=== PATIENT | female | born 1985 ===

== ENCOUNTER 2021-07-15 01:22 | Emergency (ER) | payer MEDICAID ==
--- NOTE | 2021-07-15 03:30 | Emergency Department Report ---
ED Psych HPI - General Chief Complaint: Headache Stated Complaint: HEADACHE Time Seen by Provider: 07/15/21 03:26 Source: patient Mode of arrival: Ambulatory Limitations: No Limitations - History of Present Illness Initial Comments: Patient is a 35-year-old female who presents emergency room with complaints of headache and hallucinations. Patient states that hallucinations for many years. Patient states that hallucinations are becoming more frequent. Patient states she cannot stop the voices from talking to her. Patient states she is really not having headache she just wants to get help for her mental health issues. Patient states that she has so many racing thoughts and hallucinations that is causing her head hurt. Patient denies pain. Patient denies chest pain or shortness of breath. Patient denies recent travel. Patient denies recent international travel. Patient denies exposure to the novel coronavirus. Patient denies sick contacts. Patient denies fever and chills. Patient denies cough. Patient denies diarrhea. Patient denies coming in contact with anybody with symptoms of the novel coronavirus. MD Complaint: other -: Sudden Associated Psychiatric Symptoms: depression, racing thoughts, auditory hallucinations, visual hallucinations History of same: Yes Quality: constant Improves With: none Worsens With: none Associated Symptoms: denies: confusion, headache, shortness of breath, nausea, vomiting, syncope, insomnia - Related Data Previous Rx's Medication Instructions Recorded Last Taken Type Divalproex Dr [DepaKOTE DR] 125 mg PO BID #30 tablet 07/18/21 Unknown Rx FLUoxetine [PROzac] 10 mg PO QDAY #30 tablet 07/18/21 Unknown Rx OLANZapine [Zyprexa] 20 mg PO DAILY #30 tablet 07/18/21 Unknown Rx Allergies Allergy/AdvReac Type Severity Reaction Status Date / Time No Known Allergies Allergy Verified 07/21/21 15:21 ED Review of Systems ROS: Stated complaint: HEADACHE Other details as noted in HPI Constitutional: denies: chills, fever Eyes: denies: eye pain, eye discharge, vision change ENT: denies: ear pain, throat pain Respiratory: denies: cough, shortness of breath, wheezing Cardiovascular: denies: chest pain, palpitations Endocrine: no symptoms reported Gastrointestinal: denies: abdominal pain, nausea, diarrhea Genitourinary: denies: urgency, dysuria, discharge Musculoskeletal: denies: back pain, joint swelling, arthralgia Skin: denies: rash, lesions Neurological: denies: weakness, paresthesias Psychiatric: depression, auditory hallucinations, visual hallucinations. denies: anxiety, homicidal thoughts, suicidal thoughts Hematological/Lymphatic: denies: easy bleeding, easy bruising ED Past Medical Hx - Past Medical History Previous Medical History?: No - Surgical History Past Surgical History?: No - Family History Family history: no significant - Social History Smoking Status: Unknown if ever smoked Substance Use Type: Marijuana - Medications Home Medications: Home Medications Medication Instructions Recorded Confirmed Last Taken Type Divalproex Dr [DepaKOTE DR] 125 mg PO BID #30 tablet 07/18/21 Unknown Rx FLUoxetine [PROzac] 10 mg PO QDAY #30 tablet 07/18/21 Unknown Rx OLANZapine [Zyprexa] 20 mg PO DAILY #30 tablet 07/18/21 Unknown Rx ED Physical Exam - General Limitations: No Limitations General appearance: alert, in no apparent distress - Head Head exam: Present: atraumatic, normocephalic - Eye Eye exam: Present: normal appearance - ENT ENT exam: Present: mucous membranes moist - Neck Neck exam: Present: normal inspection - Respiratory Respiratory exam: Present: normal lung sounds bilaterally. Absent: respiratory distress - Cardiovascular Cardiovascular Exam: Present: regular rate, normal rhythm. Absent: systolic murmur, diastolic murmur, rubs, gallop - GI/Abdominal GI/Abdominal exam: Present: soft, normal bowel sounds - Extremities Exam Extremities exam: Present: normal inspection - Back Exam Back exam: Present: normal inspection - Neurological Exam Neurological exam: Present: alert, oriented X3 - Psychiatric Psychiatric exam: Present: depressed, flat affect - Expanded Psychiatric Exam Expanded Focused psych exam: Present: pressured speech, loose associations - Skin Skin exam: Present: warm, dry, intact, normal color. Absent: rash ED Course Vital Signs 07/15/21 07/15/21 07/15/21 02:36 15:38 18:14 Temperature 98.0 F 97.7 F Pulse Rate 89 70 Respiratory 18 18 Rate Blood Pressure 118/76 Blood Pressure 123/71 [Left] O2 Sat by Pulse 99 97 97 Oximetry 07/15/21 07/15/21 07/15/21 20:07 20:19 21:22 Temperature 98.4 F Pulse Rate 54 L 57 L Respiratory 16 16 16 Rate Blood Pressure Blood Pressure 78/33 100/46 [Left] O2 Sat by Pulse 98 98 98 Oximetry 07/16/21 07/16/21 07/16/21 02:07 07:30 07:38 Temperature 98.4 F 98.7 F Pulse Rate 53 L 58 L Respiratory 16 16 16 Rate Blood Pressure Blood Pressure 95/62 96/62 [Left] O2 Sat by Pulse 98 100 98 Oximetry 07/16/21 07/16/21 07/16/21 13:35 16:30 19:45 Temperature 98.9 F Pulse Rate 60 62 57 L Respiratory 16 16 16 Rate Blood Pressure Blood Pressure 102/62 98/54 90/37 [Left] O2 Sat by Pulse 100 100 96 Oximetry 07/16/21 07/17/21 07/17/21 22:47 02:20 11:44 Temperature 98.3 F Pulse Rate 64 77 Respiratory 16 16 18 Rate Blood Pressure Blood Pressure 114/69 110/66 [Left] O2 Sat by Pulse 98 97 97 Oximetry 07/17/21 07/17/21 07/18/21 16:25 19:55 08:56 Temperature 98.4 F 97.6 F Pulse Rate 91 H 61 Respiratory 18 18 Rate Blood Pressure Blood Pressure 96/53 123/64 [Left] O2 Sat by Pulse 99 100 100 Oximetry - Reevaluation(s) Reevaluation #1: Patient placed on a ER hold. 07/15/21 03:29 Reevaluation #2: Patient is medically cleared. Patient will remain in the ER as an ER hold until cleared by mental health. Patient's final disposition will come from our psychiatry team. 07/15/21 05:11 ED Medical Decision Making - Lab Data Result diagrams: 07/17/21 10:24 07/15/21 18:53 - Medical Decision Making Patient is a 35-year-old female that presents emergency room with complaints of hallucinations and headache. Patient states that she does not have a headache just needs something done about her mental state. Patient states she is hearing voices. Patient has signs and symptoms of psychosis. Patient placed on a ER hold after initial evaluation. Patient had labs done which were essentially unremarkable. Patient is medically cleared. Patient's final disposition will come from our psychiatry mental health team. - Differential Diagnosis Hallucinations, acute psychosis, Critical care attestation.: If time is entered above; I have spent that time in minutes in the direct care of this critically ill patient, excluding procedure time. ED Disposition Clinical Impression: Acute psychosis, Hallucinations, visual, Auditory hallucinations Disposition: HOME / SELF CARE / HOMELESS Is pt being admited?: No Does the pt Need Aspirin: No Condition: Stable Instructions: Psychosis Additional Instructions: Take medications as written by [facility] health. Drink plenty water. Return for problems. Follow-up with your regular doctor. Prescriptions: Divalproex Dr [DepaKOTE DR] 125 mg PO BID #30 tablet FLUoxetine [PROzac] 10 mg PO QDAY #30 tablet OLANZapine [Zyprexa] 20 mg PO DAILY #30 tablet Referrals: PRIMARY CAREMD [Primary Care Provider] - 3-5 Days NISREEN JETT MD [Staff Physician] - 3-5 Days Time of Disposition: 05:11
[2021-07-15 03:54] LABS: Hematocrit 41.1 % (30.3-42.9); Hemoglobin 13.9 gm/dl (10.1-14.3); Mean Corpuscular HGB Conc 34 % (30-34); Mean Corpuscular Volume 96 fl (79-97); Platelet Count 252 K/mm3 (140-440); Red Blood Count 4.29 M/mm3 (3.65-5.03); Red Cell Distribution Width 14.3 % (13.2-15.2)
[2021-07-15 04:36] LABS: Blood Urea Nitrogen 9 mg/dL (7-17); Calcium 9.4 mg/dL (8.4-10.2); Hemolysis Index 2
[2021-07-15 04:40] LABS: Total Cells Counted 100
[2021-07-15 04:41] LABS: Platelet Estimate Consistent w Auto; RBC Morphology Normal
[2021-07-15 04:54] LABS: BUN/Creatinine Ratio 15
[2021-07-15 10:24] LABS: Amphetamine Screen,Urine Negative; Benzodiazepines Screen,Urine Negative; Cocaine Screen,Urine Negative; Methadone Screen,Urine Negative; Opiate Screen,Urine Negative
[2021-07-15] MEDS ORDERED: POTASSIUM CHLORIDE ER 20 MEQ TAB PO ONE (10:29)
[2021-07-15 10:30] LABS: Bilirubin,Urine NEG (Negative); Blood,Urine SM (Negative); Color,Urine Yellow (Yellow); Mucus,Urine 3+ /HPF; Protein,Urine <15 mg/dL mg/dL (Negative)
[2021-07-15] MEDS ORDERED: SODIUM CHLORIDE 0.9% 1000 ML 1,000 ML IV ONE (10:32)
--- NOTE | 2021-07-15 10:37 | Event Note ---
Date: 07/15/21 S: No events reported overnight O: Vital Signs - 24 hr 07/15/21 02:36 Temperature 98.0 F Pulse Rate 89 Respiratory 18 Rate Blood Pressure 118/76 O2 Sat by Pulse 99 Oximetry A: Psychosis, hypokalemia P: Awaiting psychiatric evaluation. Potassium chloride 40 mEq p.o. ordered
--- NOTE | 2021-07-15 10:57 | Consultation ---
History of Present Illness - Reason for Consult Consult date: 07/15/21 Reason for consult: hallucinations - History of Present Psychiatric Illness Per Ed Note: Patient is a 35-year-old female who presents emergency room with complaints of headache and hallucinations. Patient states that hallucinations for many years. Patient states that hallucinations are becoming more frequent. Patient states she cannot stop the voices from talking to her. Patient states she is really not having headache she just wants to get help for her mental health issues. Divina Pham is a 35 year old female with unknown psychiatric history who presents to the ED with hallucinations and headache. In my interview with the patient she presents with labile affect. The patient endorses non commanding auditory hallucinations stating " I hear voices coming from the [place] and I don't understand what they are saying." The patient denies any current suicidal/homicidal ideation. The patient became hostile in the middle of our conversation and stated she did not want to continue the interview. Psych History Diagnoses: Denies Suicide attempts or Self-harm behavior:Denies Prior psychiatric hospitalizations: Denies Substance Abuse history:Denies Previous psychiatric medications tried:Denies Outpatient treatment: Denies PAST MEDICAL HISTORY: none reported Family Psychiatric History: None reported or documented SOCIAL HISTORY Marital Status: Living Arrangements: Lives alone Employment Status:unemployed Access to guns/weapons: Denies Education: 8th Grade History of Abuse: Denies Legal History: none reported REVIEW OF SYSTEMS Constitutional: Negative for weight loss ENT: Negative for stridor Respiratory: Negative for cough or hemoptysis All other systems reviewed and are negative MENTAL STATUS EXAMINATION General Appearance and Behavior: Age appropriate, good hygiene, wearing appropriate clothes, sleeping, cooperative Cooperation: Participating but drowsy Psychomotor Behavior: unremarkable and within normal limits Mood: "OK" Affect and affective range: Incongruent with mood, labile Thought Process:Thought blocking Thought Content: Impulsive Speech: Normal volume, Regular rate and rhythm, Suicidal Ideation: Denies Homicidal Ideation:Denies Hallucinations: Yes, auditory Delusions: None elicited Impulse Control: Questionable Insight and Judgment: Limited insight and poor judgment, Memory: Normal, Attention: Normal Orientation: Alert, oriented Assessment and Plan (1)Unspecified mood disorder- F39 Continue 1013 Start Zyprexa 10mg po dailt Start Trazodone 50mg po QHS Continue previously prescribed medications The patient to comply with previously prescribed medications Risks, benefits and alternatives of medications discussed with the patient, questions answered and consent obtained from patient. PSYCHOTHERAPY: Supportive psychotherapy provided MEDICAL: Per primary team DELIRIUM PRECAUTIONS: Please re-orient patient frequently, keep lights on during the day, and minimize benzodiazepines and opiates as these medications could worsen patient's confusion. 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 [facility] will provide patient with out patient resources. Will follow. Thank you for the consult. Please contact with any questions and/or concerns. Case staffed with Dr. Norris Medications and Allergies Allergies Allergy/AdvReac Type Severity Reaction Status Date / Time No Known Allergies Allergy Unverified 07/15/21 02:42 Active Meds: Active Medications Sodium Chloride (Nacl 0.9% 1000 Ml) 1,000 mls @ 999 mls/hr IV ONCE ONE Stop: 07/15/21 11:32 Olanzapine (Olanzapine 10 Mg Tab) 10 mg PO DAILY ROSALVA Ziprasidone (Ziprasidone Mesylate 20 Mg Vial) 10 mg IM Q2H PRN PRN Reason: Agitation Mental Status Exam - Vital signs Last Vital Signs Temp 98.0 F 07/15/21 02:36 Pulse 89 07/15/21 02:36 Resp 18 07/15/21 02:36 BP 118/76 07/15/21 02:36 Pulse Ox 99 07/15/21 02:36 Results Result Diagrams: 07/15/21 03:36 07/15/21 03:36 Abnormal lab results 07/15/21 07/15/21 07/15/21 Range/Units 03:36 03:36 03:36 WBC 13.0 H (4.5-11.0) K/mm3 MCH 33 H (28-32) pg Lymphocytes % (Manual) 49.0 H (13.4-35.0) % Lymphocytes # (Manual) 6.4 H (1.2-5.4) K/mm3 Potassium 3.0 L (3.6-5.0) mmol/L Glucose 141 H (65-100) mg/dL Salicylates < 0.3 L (2.8-20.0) mg/dL Acetaminophen (10.0-30.0) ug/mL 07/15/21 Range/Units 03:36 WBC (4.5-11.0) K/mm3 MCH (28-32) pg Lymphocytes % (Manual) (13.4-35.0) % Lymphocytes # (Manual) (1.2-5.4) K/mm3 Potassium (3.6-5.0) mmol/L Glucose (65-100) mg/dL Salicylates (2.8-20.0) mg/dL Acetaminophen 5.0 L (10.0-30.0) ug/mL All other labs normal.
[2021-07-15 12:13] LABS: Cannabinoid Screen,Urine PRESUMPTIVE POSITIVE
[2021-07-15 19:05] LABS: Hematocrit 36.9 % (30.3-42.9); Hemoglobin 12.6 gm/dl (10.1-14.3); Mean Corpuscular HGB Conc 34 % (30-34); Mean Corpuscular Volume 95 fl (79-97); Platelet Count 237 K/mm3 (140-440); Red Blood Count 3.89 M/mm3 (3.65-5.03); Red Cell Distribution Width 14.3 % (13.2-15.2)
[2021-07-15 19:22] LABS: BUN/Creatinine Ratio 15; Blood Urea Nitrogen 12 mg/dL (7-17); Hemolysis Index 3
--- NOTE | 2021-07-16 08:58 | Progress Note ---
Subjective - Reason for Consult Consult date: 07/16/21 Reason for consult: psychosis - Chief Complaint Chief complaint: The patient was seen today. She is paranoid. She is avoidant. Her speech is nonsensical. The patient makes poor eye contact. She says she came to the hospital because she had a headache for three years. She also says she's "hearing voices telling her stuff." She denies SI/HI. She then tells me to "take my words back." The patient says "don't mention any of it." I ask her what did she mean, she replies "that's exactly what I'm talking about. Please turn my light off." She is mumbling something as I'm leaving. REVIEW OF SYSTEMS Constitutional: Negative for weight loss ENT: Negative for stridor Respiratory: Negative for cough or hemoptysis All other systems reviewed and are negative MENTAL STATUS EXAMINATION General Appearance and Behavior: Age appropriate, good hygiene, wearing appropriate clothes, sleeping, cooperative Cooperation: Participating but drowsy Psychomotor Behavior: unremarkable and within normal limits Mood: "OK" Affect and affective range: Incongruent with mood, labile Thought Process: Thought blocking Thought Content: Impulsive Speech: Normal volume, Regular rate and rhythm, Suicidal Ideation: Denies Homicidal Ideation:Denies Hallucinations: Yes, auditory Delusions: None elicited Impulse Control: Questionable Insight and Judgment: Limited insight and poor judgment, Memory: Normal, Attention: Normal Orientation: Alert, oriented Assessment (1)Unspecified mood disorder- F39 Treatment Plan Increase Zyprexa 15mg po daily Start Depakote DR 125mg po BID Continue previously prescribed medications The patient to comply with previously prescribed medications Risks, benefits and alternatives of medications discussed with the patient, questions answered and consent obtained from patient. PSYCHOTHERAPY: Supportive psychotherapy provided MEDICAL: Per primary team DELIRIUM PRECAUTIONS: Please re-orient patient frequently, keep lights on during the day, and minimize benzodiazepines and opiates as these medications could worsen patient's confusion. DIANETICIST: Defer to primary Disposition: Recommend acute psychiatric inpatient treatment. Supervisor Production Managing will provide patient with out patient resources. Will follow. Thank you for the consult. Please contact with any questions and/or concerns. Case staffed with Dr. Norris Mental Status Exam - Vital signs Last Vital Signs Temp 98.4 F 07/16/21 02:07 Pulse 53 L 07/16/21 02:07 Resp 16 07/16/21 02:07 BP 95/62 07/16/21 02:07 Pulse Ox 98 07/16/21 02:07
[2021-07-16] MEDS: DIVALPROEX DR 125 MG TAB PO SCH ×2 (10:32→22:38)
--- NOTE | 2021-07-16 11:13 | Event Note ---
Date: 07/16/21 S: No events reported overnight O: Vital Signs - 8 hr 07/16/21 07:30 Temperature 98.7 F Pulse Rate 58 L Respiratory 16 Rate Blood Pressure 96/62 [Left] O2 Sat by Pulse 100 Oximetry A: Unspecified mood disorder, UTI P: Awaiting inpatient psych placement, start Bactrim for UTI, IV hydration
[2021-07-16] MEDS ORDERED: SODIUM CHLORIDE 0.9% 1000 ML 1,000 ML IV ONE (11:48)
[2021-07-16] MEDS: SULFAMETHOXAZOLE/TRIMETHOPRIM 800/160MG DS TAB PO SCH ×2 (13:31→23:22)
[2021-07-16] MEDS ORDERED: LORazepam 1 MG TAB PO ONE (14:10)
[2021-07-16] MEDS ORDERED: WATER FOR INJ Sterile (PF) 10 ML ONE (14:26)
[2021-07-16] MEDS: ZIPRASIDONE MESYLATE 20 MG VIAL IM PRN (15:00)
[2021-07-16] MEDS ORDERED: CYCLOBENZAPRINE 10 MG TAB PO ONE (16:58)
[2021-07-17] MEDS: SULFAMETHOXAZOLE/TRIMETHOPRIM 800/160MG DS TAB PO SCH (09:42)
[2021-07-17] MEDS: DIVALPROEX DR 125 MG TAB PO SCH (09:42)
--- NOTE | 2021-07-17 10:16 | Progress Note ---
Subjective - Reason for Consult Consult date: 07/17/21 Reason for consult: psychosis - Chief Complaint Chief complaint: The patient was seen today. Her thoughts are still somewhat disorganized, but she's much more conversational today. The patient says she doesn't feel safe going home. When asking why did she feel unsafe, she says "that's true." She then asks, "can doctors take care of me?" When asked the patient why did she come to the hospital, she states "because I had a headache for three years and hearing voices." REVIEW OF SYSTEMS Constitutional: Negative for weight loss ENT: Negative for stridor Respiratory: Negative for cough or hemoptysis All other systems reviewed and are negative MENTAL STATUS EXAMINATION General Appearance and Behavior: Age appropriate, good hygiene, wearing appro priate clothes, sleeping, cooperative Cooperation: Participating but drowsy Psychomotor Behavior: unremarkable and within normal limits Mood: "OK" Affect and affective range: Incongruent with mood, labile Thought Process: Thought blocking Thought Content: Impulsive Speech: Normal volume, Regular rate and rhythm, Suicidal Ideation: Denies Homicidal Ideation:Denies Hallucinations: Yes, auditory Delusions: None elicited Impulse Control: Questionable Insight and Judgment: Limited insight and poor judgment, Memory: Normal, Attention: Normal Orientation: Alert, oriented Assessment (1)Unspecified mood disorder- F39 Treatment Plan Increase Zyprexa 20mg po daily Depakote DR 125mg po BID Start Prozac 10mg po daily Continue previously prescribed medications The patient to comply with previously prescribed medications Risks, benefits and alternatives of medications discussed with the patient, questions answered and consent obtained from patient. PSYCHOTHERAPY: Supportive psychotherapy provided MEDICAL: Per primary team DELIRIUM PRECAUTIONS: Please re-orient patient frequently, keep lights on during the day, and minimize benzodiazepines and opiates as these medications could worsen patient's confusion. REFUGE MANAGER: Defer to primary Disposition: Recommend acute psychiatric inpatient treatment. Personal Injury Legal Assistant will provide patient with out patient resources. Will follow. Thank you for the consult. Please contact with any questions and/or concerns. Case staffed with Dr. Norris Mental Status Exam - Vital signs Last Vital Signs Temp 98.3 F 07/17/21 02:20 Pulse 64 07/17/21 02:20 Resp 16 07/17/21 02:20 BP 114/69 07/17/21 02:20 Pulse Ox 97 07/17/21 02:20
--- NOTE | 2021-07-17 10:36 | Event Note ---
Date: 07/17/21 S: Patient has no complaints O: Vitals are stable. Patient is calm and cooperative. A: Unspecified mood disorder P: Repeat CBC for referral purposes; continue 1013; awaiting inpatient psychiatric placement
[2021-07-17 11:08] LABS: Basophils # (Auto) 0.1 K/mm3 (0.0-0.1); Basophils % (Auto) 0.4 % (0.0-1.8); Eosinophils % (Auto) 0.3 % (0.0-4.3); Hematocrit 39.4 % (30.3-42.9); Hemoglobin 13.3 gm/dl (10.1-14.3); Lymphocytes # (Auto) 3.9 K/mm3 (1.2-5.4); Lymphocytes % (Auto) 25.6 % (13.4-35.0); Mean Corpuscular HGB Conc 34 % (30-34); Mean Corpuscular Volume 96 fl (79-97); Monocytes # (Auto) 0.7 K/mm3 (0.0-0.8); Monocytes % (Auto) 4.6 % (0.0-7.3); Platelet Count 242 K/mm3 (140-440); Red Blood Count 4.12 M/mm3 (3.65-5.03); Red Cell Distribution Width 14.1 % (13.2-15.2)
[2021-07-17] MEDS: FLUoxetine 10 MG TAB PO SCH (12:00)
[2021-07-17] MEDS ORDERED: WATER FOR INJ Sterile (PF) 10 ML ONE ×2 (17:10)
[2021-07-17] MEDS: ZIPRASIDONE MESYLATE 20 MG VIAL IM PRN (17:15)
[2021-07-18] MEDS: DIVALPROEX DR 125 MG TAB PO SCH ×2 (05:13→10:29)
[2021-07-18] MEDS: SULFAMETHOXAZOLE/TRIMETHOPRIM 800/160MG DS TAB PO SCH ×2 (05:13→10:29)
[2021-07-18 08:58] VITALS: BP 123/64
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
--- NOTE | 2021-07-18 09:53 | Emergency Department Report ---
Blank Doc - Documentation Documentation: Psychosis is improved today. Patient is resting. Patient has been seen by ps ychiatric services and it is felt she can be discharged home. They did write prescriptions.
[2021-07-18] MEDS: FLUoxetine 10 MG TAB PO SCH (10:29)
== END 2021-07-18 10:38 | disposition home or self-care (01) ==
LOC: ED 01:22
DX: F23 Brief psychotic disorder (principal); Z20.822 Contact with and (suspected) exposure to COVID-19; F12.90 Cannabis use, unspecified, uncomplicated
CPT/HCPCS: 36415; 80048; 80307; 81001; 84703; 85007; 85025; 85027; 87086; 96360; 96361; 96372; 99284; J3486; J7030; U0003; 80320; G0480

== ENCOUNTER 2021-07-21 15:11 | Emergency (ER) | payer SELFPAY ==
--- NOTE | 2021-07-21 19:01 | Event Note ---
ED Screening Note Date of service: 07/21/21 Time: 19:00 ED Screening Note: Patient presents with complaints of dizziness for the past few hours She denies any headache though her chief complaint is a headache Patient was admitted here 07/15 for acute psychosis Nurse notes states patient was [place] of the [place] station and transported here by EMS Patient initially left the ED after triage to get a pack of cigarettes Patient is a poor historian This initial assessment/diagnostic orders/clinical plan/treatment(s) is/are subject to change based on patients health status, clinical progression and re- assessment by fellow clinical providers in the ED. Further treatment and workup at subsequent clinical providers discretion. Patient/guardian urged not to elope from the ED as their condition may be serious if not clinically assessed and managed. Initial orders include: Labs EKG
[2021-07-21 19:31] LABS: Basophils # (Auto) 0.1 K/mm3 (0.0-0.1); Basophils % (Auto) 0.5 % (0.0-1.8); Eosinophils # (Auto) 0.3 K/mm3 (0.0-0.4); Eosinophils % (Auto) 2.4 % (0.0-4.3); Hematocrit 40.7 % (30.3-42.9); Hemoglobin 13.8 gm/dl (10.1-14.3); Lymphocytes # (Auto) 3.9 K/mm3 (1.2-5.4); Lymphocytes % (Auto) 32.6 % (13.4-35.0); Mean Corpuscular HGB Conc 34 % (30-34); Mean Corpuscular Volume 94 fl (79-97); Monocytes # (Auto) 0.6 K/mm3 (0.0-0.8); Monocytes % (Auto) 5.2 % (0.0-7.3); Platelet Count 248 K/mm3 (140-440); Red Blood Count 4.31 M/mm3 (3.65-5.03)
[2021-07-21 19:47] LABS: Alanine Aminotransferase 8 units/L (7-56); Albumin 3.9 g/dL (3.9-5); Blood Urea Nitrogen 9 mg/dL (7-17); Calcium 9.2 mg/dL (8.4-10.2); Hemolysis Index 13
[2021-07-21 19:55] LABS: BUN/Creatinine Ratio 18
--- NOTE | 2021-07-21 20:58 | Emergency Department Report ---
ED Psych HPI - General Chief Complaint: Headache Stated Complaint: HEADACHE Time Seen by Provider: 07/21/21 17:26 Source: patient Mode of arrival: Wheelchair - History of Present Illness Initial Comments: 35-year-old female presents to ED for mental health evaluation. Patient states she thinks she may need to go to a mental health hospital. Patient reports auditory hallucinations and suicidal ideation. Patient states the voices in her head "used to sing with me, but now they dissing me." She states the voices are speaking badly about her. Patient denies any command auditory hallucinations. Patient is reporting suicidal thoughts as well. Patient is asking as to a "[facility]", that will commit suicide for her. When asked what patient's psychiatric diagnosis is, patient states "I cannot remember, they've diagnosed me with so many things." Patient crying and tearful, stating that she misses her kids. Patient states her children are in foster care. She states she does not want them to live with her right now because the neighborhood that she lives and is not safe for them. Patient states she was seen and evaluated in the ED a couple of days ago, but states she lied and said that she was feeling better even though she was not. MD Complaint: suicidal ideation, feels depressed -: unknown Associated Psychiatric Symptoms: suicidal ideation, auditory hallucinations History of same: Yes Quality: constant Improves With: none Worsens With: none Context: not taking psychiatric Associated Symptoms: denies other symptoms Treatments Prior to Arrival: none If Self Harm: admits thoughts of - Related Data Previous Rx's Medication Instructions Recorded Last Taken Type Divalproex Dr Wilner MONROE] 125 mg PO BID #30 tablet 07/18/21 Unknown Rx FLUoxetine [PROzac] 10 mg PO QDAY #30 tablet 07/18/21 Unknown Rx OLANZapine [Zyprexa] 20 mg PO DAILY #30 tablet 07/18/21 Unknown Rx Allergies Allergy/AdvReac Type Severity Reaction Status Date / Time No Known Allergies Allergy Verified 07/21/21 15:21 ED Review of Systems ROS: Stated complaint: HEADACHE Other details as noted in HPI Comment: All other systems reviewed and negative Psychiatric: depression, auditory hallucinations, suicidal thoughts ED Past Medical Hx - Social History Smoking Status: Unknown if ever smoked Substance Use Type: Marijuana - Medications Home Medications: Home Medications Medication Instructions Recorded Confirmed Last Taken Type Divalproex [MyaKOTE DR] 125 mg PO BID #30 tablet 07/18/21 Unknown Rx FLUoxetine [PROzac] 10 mg PO QDAY #30 tablet 07/18/21 Unknown Rx OLANZapine [Zyprexa] 20 mg PO DAILY #30 tablet 07/18/21 Unknown Rx ED Physical Exam - General Limitations: No Limitations General appearance: alert, in no apparent distress - Head Head exam: Present: atraumatic, normocephalic - Eye Eye exam: Present: normal appearance, EOMI - ENT ENT exam: Present: mucous membranes moist - Neck Neck exam: Present: normal inspection - Respiratory Respiratory exam: Present: normal lung sounds bilaterally. Absent: respiratory distress - Cardiovascular Cardiovascular Exam: Present: regular rate, normal rhythm - GI/Abdominal GI/Abdominal exam: Absent: distended - Extremities Exam Extremities exam: Present: normal inspection - Neurological Exam Neurological exam: Present: alert, oriented X3 - Psychiatric Psychiatric exam: Present: depressed, suicidal ideation, other (Tearful) - Skin Skin exam: Present: warm, dry, intact, normal color ED Course Vital Signs 07/21/21 07/21/21 07/21/21 22:18 22:43 22:49 Temperature 98.0 F 98.0 F Pulse Rate 68 68 Respiratory 16 16 Rate Blood Pressure 121/66 Blood Pressure 121/66 [Right] O2 Sat by Pulse 100 100 100 Oximetry ED Medical Decision Making - Lab Data Result diagrams: 07/21/21 19:13 07/21/21 19:13 - Medical Decision Making 35-year-old female presents to ED with auditory hallucinations and suicidal ideations. Labs are unremarkable. Patient is medically clear for mental health evaluation. Will dispo per psych. Critical care attestation.: If time is entered above; I have spent that time in minutes in the direct care of this critically ill patient, excluding procedure time. ED Disposition Condition: Stable Referrals: PRIMARY CARE, [Primary Care Provider] - 3-5 Days
[2021-07-21 23:40] LABS: Amorphous Crystals,Urine Few; Bilirubin,Urine NEG (Negative); Blood,Urine MOD (Negative); Color,Urine Yellow (Yellow); Mucus,Urine FEW /HPF; Protein,Urine <15 mg/dL mg/dL (Negative); Urobilinogen,Urine < 2.0 mg/dL (<2.0)
[2021-07-22 00:56] LABS: Amphetamine Screen,Urine PRESUMPTIVE NEGATIVE; Benzodiazepines Screen,Urine PRESUMPTIVE NEGATIVE; Cannabinoid Screen,Urine PRESUMPTIVE POSITIVE; Cocaine Screen,Urine PRESUMPTIVE NEGATIVE; Methadone Screen,Urine PRESUMPTIVE NEGATIVE; Opiate Screen,Urine PRESUMPTIVE NEGATIVE
[2021-07-22] MEDS ORDERED: SODIUM CHLORIDE 0.9% 1000 ML 1,000 ML IV ONE (06:30)
--- NOTE | 2021-07-22 09:44 | Consultation ---
History of Present Illness - Reason for Consult Consult date: 07/22/21 Reason for consult: SI, psychosis - History of Present Psychiatric Illness Per ER note: 35-year-old female presents to ED for mental health evaluation. Patient states she thinks she may need to go to a mental health hospital. Patient reports auditory hallucinations and suicidal ideation. Patient states the voices in her head "used to sing with me, but now they dissing me." She st ates the voices are speaking badly about her. Patient denies any command auditory hallucinations. Patient is reporting suicidal thoughts as well. Patient is asking as to a "suicide hospital", that will commit suicide for her. When asked what patient's psychiatric diagnosis is, patient states "I cannot remember, they've diagnosed me with so many things." Patient crying and tearful, stating that she misses her kids. Patient states her children are in foster care. She states she does not want them to live with her right now because the neighborhood that she lives and is not safe for them. Patient states she was seen and evaluated in the ED a couple of days ago, but states she lied and said that she was feeling better even though she was not. Divina Pham is a 35y/o patient I just evaluated a few days ago. She told the ER doc she lied about feeling better the other day. The patient says "I'm feeling dizzy with my memory." She says she fears going home because she feels like people are out to get her. She then starts telling me that some man drove off with her purse. The patient denies hallucinations but when she came in she was hearing voices. She is smiling inappropriately at times. Psych History Diagnoses: Denies Suicide attempts or Self-harm behavior:Denies Prior psychiatric hospitalizations: Denies Substance Abuse history:Denies Previous psychiatric medications tried:Denies Outpatient treatment: Denies PAST MEDICAL HISTORY: none reported Family Psychiatric History: None reported or documented SOCIAL HISTORY Marital Status: Living Arrangements: Lives alone Employment Status:unemployed Access to guns/weapons: Denies Education: 8th Grade History of Abuse: Denies Legal History: none reported REVIEW OF SYSTEMS Constitutional: Negative for weight loss ENT: Negative for stridor Respiratory: Negative for cough or hemoptysis All other systems reviewed and are negative MENTAL STATUS EXAMINATION General Appearance and Behavior: Age appropriate, good hygiene, wearing appropriate clothes, sleeping, cooperative Cooperation: Participating but drowsy Psychomotor Behavior: unremarkable and within normal limits Mood: "OK" Affect and affective range: Incongruent with mood, labile Thought Process:Thought blocking Thought Content: Impulsive Speech: Normal volume, Regular rate and rhythm, Suicidal Ideation: Denies Homicidal Ideation:Denies Hallucinations: Yes, auditory Delusions: None elicited Impulse Control: Questionable Insight and Judgment: Limited insight and poor judgment, Memory: Normal, Attention: Normal Orientation: Alert, oriented Assessment and Plan (1)Unspecified mood disorder- F39 Treatment plan 1013 Zyprexa 20mg po dailt Prozac 10mg po daily Depakote DR 125mg po BID Continue previously prescribed medications The patient to comply with previously prescribed medications Risks, benefits and alternatives of medications discussed with the patient, questions answered and consent obtained from patient. PSYCHOTHERAPY: Supportive psychotherapy provided MEDICAL: Per primary team DELIRIUM PRECAUTIONS: Please re-orient patient frequently, keep lights on during the day, and minimize benzodiazepines and opiates as these medications could worsen patient's confusion. MEDICAL PARASITOLOGIST: Defer to primary Disposition: Recommend acute psychiatric inpatient treatment. Will follow. Thank you for the consult. Please contact with any questions and/or concerns. Case staffed with Dr. Norris Medications and Allergies Allergies Allergy/AdvReac Type Severity Reaction Status Date / Time No Known Allergies Allergy Verified 07/21/21 15:21 Home Medications Medication Instructions Recorded Confirmed Last Taken Type Divalproex Dr [DepaKOTE DR] 125 mg PO BID #30 tablet 07/18/21 Unknown Rx FLUoxetine [PROzac] 10 mg PO QDAY #30 tablet 07/18/21 Unknown Rx OLANZapine [Zyprexa] 20 mg PO DAILY #30 tablet 07/18/21 Unknown Rx Mental Status Exam - Vital signs Last Vital Signs Temp 98.3 F 07/22/21 08:00 Pulse 70 07/22/21 08:00 Resp 18 07/22/21 08:00 BP 105/58 07/22/21 08:00 Pulse Ox 98 07/22/21 08:00 Results Result Diagrams: 07/21/21 19:13 07/21/21 19:13 Abnormal lab results 07/21/21 07/21/21 07/21/21 Range/Units 19:13 19:13 20:56 WBC 12.0 H (4.5-11.0) K/mm3 Creatinine 0.5 L (0.6-1.2) mg/dL Glucose 103 H (65-100) mg/dL Salicylates < 0.3 L (2.8-20.0) mg/dL Acetaminophen (10.0-30.0) ug/mL 07/21/21 Range/Units 20:56 WBC (4.5-11.0) K/mm3 Creatinine (0.6-1.2) mg/dL Glucose (65-100) mg/dL Salicylates (2.8-20.0) mg/dL Acetaminophen 5.0 L (10.0-30.0) ug/mL All other labs normal.
[2021-07-22] MEDS ORDERED: NON-FORMULARY EACH (Olanzapine [Zyprexa] 20 MG Tablet) PO SCH (10:00)
[2021-07-22] MEDS: DIVALPROEX DR 125 MG TAB PO SCH ×2 (10:41→22:45)
[2021-07-22] MEDS: FLUoxetine 10 MG TAB PO SCH (10:42)
[2021-07-22] MEDS ORDERED: SODIUM CHLORIDE 0.9% 1000 ML 1,000 ML ONE (10:44)
[2021-07-22] MEDS ORDERED: diphenhydrAMINE 25 MG CAP PO PRN (11:39)
[2021-07-22] MEDS ORDERED: LORazepam 2 MG/ML VIAL IM PRN (11:39)
[2021-07-22] MEDS ORDERED: ONDANSETRON 4 MG ODT TAB PO PRN (11:39)
[2021-07-22] MEDS ORDERED: ACETAMINOPHEN 325 MG TAB PO PRN (11:39)
--- NOTE | 2021-07-22 11:40 | Event Note ---
Date: 07/22/21 The patient was evaluated in the emergency department for symptoms described in the history of present illness. He/she was evaluated in the context of the global COVID-19 pandemic, which necessitated consideration that the patient might be at risk for infection with the virus that causes COVID-19. Institutional protocols and algorithms that pertain to the evaluation of patients at risk for COVID-19 are in a state of rapid change based on information released by regulatory bodies including the CDC and federal and state organizations. These policies and algorithms were followed during the patient's care in the emergency department. Please note that these policies, procedures and recommendations changed on a rapid basis. Laboratory studies, vital signs, nursing documentation, ER documentation, and psychiatric documentation are reviewed and appreciated. Nursing team reports no acute events this morning or concerns. The patient is awake and ambulating and does not appear to be in any acute distress. The patient was deemed medically suitable for psychiatric disposition and placement during her initial ER evaluation. The patient continues to remain medically suitable for psychiatric placement and disposition. sHe is currently pending psychiatric placement. Vital Signs 07/21/21 07/21/21 07/21/21 22:18 22:43 22:49 Temperature 98.0 F 98.0 F Pulse Rate 68 68 Respiratory 16 16 Rate Blood Pressure 121/66 Blood Pressure 121/66 [Right] O2 Sat by Pulse 100 100 100 Oximetry 07/22/21 07/22/21 07:46 08:00 Temperature 98.3 F Pulse Rate 70 Respiratory 18 Rate Blood Pressure Blood Pressure 105/58 [Right] O2 Sat by Pulse 99 98 Oximetry Lab Results 07/21/21 07/21/21 07/21/21 Range/Units 19:13 19:13 19:13 WBC 12.0 H (4.5-11.0) K/mm3 RBC 4.31 (3.65-5.03) M/mm3 Hgb 13.8 (10.1-14.3) gm/dl Hct 40.7 (30.3-42.9) % MCV 94 (79-97) fl MCH 32 (28-32) pg MCHC 34 (30-34) % RDW 14.0 (13.2-15.2) % Plt Count 248 (140-440) K/mm3 Lymph % (Auto) 32.6 (13.4-35.0) % Clarke % (Auto) 5.2 (0.0-7.3) % Eos % (Auto) 2.4 (0.0-4.3) % Baso % (Auto) 0.5 (0.0-1.8) % Lymph # (Auto) 3.9 (1.2-5.4) K/mm3 Clarke # (Auto) 0.6 (0.0-0.8) K/mm3 Eos # (Auto) 0.3 (0.0-0.4) K/mm3 Baso # (Auto) 0.1 (0.0-0.1) K/mm3 Seg Neutrophils % 59.3 (40.0-70.0) % Seg Neutrophils # 7.1 (1.8-7.7) K/mm3 Sodium 141 (137-145) mmol/L Potassium 3.8 (3.6-5.0) mmol/L Chloride 104.6 (98-107) mmol/L Carbon Dioxide 28 (22-30) mmol/L Anion Gap 12 mmol/L BUN 9 (7-17) mg/dL Creatinine 0.5 L (0.6-1.2) mg/dL Estimated GFR > 60 ml/min BUN/Creatinine Ratio 18 % Glucose 103 H (65-100) mg/dL Calcium 9.2 (8.4-10.2) mg/dL Total Bilirubin 0.20 (0.1-1.2) mg/dL AST 10 (5-40) units/L ALT 8 (7-56) units/L Alkaline Phosphatase 60 (35-129) units/L Total Protein 7.1 (6.3-8.2) g/dL Albumin 3.9 (3.9-5) g/dL Albumin/Globulin Ratio 1.2 % HCG, Qual Negative (Negative) Urine Color (Yellow) Urine Turbidity (Clear) Urine pH (5.0-7.0) Ur Specific [place] (1.003-1.030) Urine Protein (Negative) mg/dL Urine Glucose (UA) (Negative) mg/dL Urine Ketones (Negative) mg/dL Urine Blood (Negative) Urine Nitrite (Negative) Urine Bilirubin (Negative) Urine Urobilinogen (<2.0) mg/dL Ur Leukocyte Esterase (Negative) Urine WBC (Auto) (0.0-6.0) /HPF Urine RBC (Auto) (0.0-6.0) /HPF U Epithel Cells (Auto) (0-13.0) /HPF Amorphous Crystals Urine Mucus /HPF Salicylates (2.8-20.0) mg/dL Urine Opiates Screen Urine Methadone Screen Acetaminophen (10.0-30.0) ug/mL Ur Barbiturates Screen Ur Phencyclidine Scrn Ur Amphetamines Screen U Benzodiazepines Scrn Urine Cocaine Screen U Marijuana (THC) Screen Drugs of Abuse Note Plasma/Serum Alcohol (0-0.07) % 07/21/21 07/21/21 07/21/21 Range/Units 20:56 20:56 20:56 WBC (4.5-11.0) K/mm3 RBC (3.65-5.03) M/mm3 Hgb (10.1-14.3) gm/dl Hct (30.3-42.9) % MCV (79-97) fl MCH (28-32) pg MCHC (30-34) % RDW (13.2-15.2) % Plt Count (140-440) K/mm3 Lymph % (Auto) (13.4-35.0) % Clarke % (Auto) (0.0-7.3) % Eos % (Auto) (0.0-4.3) % Baso % (Auto) (0.0-1.8) % Lymph # (Auto) (1.2-5.4) K/mm3 Clarke # (Auto) (0.0-0.8) K/mm3 Eos # (Auto) (0.0-0.4) K/mm3 Baso # (Auto) (0.0-0.1) K/mm3 Seg Neutrophils % (40.0-70.0) % Seg Neutrophils # (1.8-7.7) K/mm3 Sodium (137-145) mmol/L Potassium (3.6-5.0) mmol/L Chloride (98-107) mmol/L Carbon Dioxide (22-30) mmol/L Anion Gap mmol/L BUN (7-17) mg/dL Creatinine (0.6-1.2) mg/dL Estimated GFR ml/min BUN/Creatinine Ratio % Glucose (65-100) mg/dL Calcium (8.4-10.2) mg/dL Total Bilirubin (0.1-1.2) mg/dL AST (5-40) units/L ALT (7-56) units/L Alkaline Phosphatase (35-129) units/L Total Protein (6.3-8.2) g/dL Albumin (3.9-5) g/dL Albumin/Globulin Ratio % HCG, Qual (Negative) Urine Color (Yellow) Urine Turbidity (Clear) Urine pH (5.0-7.0) Ur Specific [place] (1.003-1.030) Urine Protein (Negative) mg/dL Urine Glucose (UA) (Negative) mg/dL Urine Ketones (Negative) mg/dL Urine Blood (Negative) Urine Nitrite (Negative) Urine Bilirubin (Negative) Urine Urobilinogen (<2.0) mg/dL Ur Leukocyte Esterase (Negative) Urine WBC (Auto) (0.0-6.0) /HPF Urine RBC (Auto) (0.0-6.0) /HPF U Epithel Cells (Auto) (0-13.0) /HPF Amorphous Crystals Urine Mucus /HPF Salicylates < 0.3 L (2.8-20.0) mg/dL Urine Opiates Screen Urine Methadone Screen Acetaminophen 5.0 L (10.0-30.0) ug/mL Ur Barbiturates Screen Ur Phencyclidine Scrn Ur Amphetamines Screen U Benzodiazepines Scrn Urine Cocaine Screen U Marijuana (THC) Screen Drugs of Abuse Note Plasma/Serum Alcohol < 0.01 (0-0.07) % 07/21/21 07/21/21 Range/Units Unknown Unknown WBC (4.5-11.0) K/mm3 RBC (3.65-5.03) M/mm3 Hgb (10.1-14.3) gm/dl Hct (30.3-42.9) % MCV (79-97) fl MCH (28-32) pg MCHC (30-34) % RDW (13.2-15.2) % Plt Count (140-440) K/mm3 Lymph % (Auto) (13.4-35.0) % Clarke % (Auto) (0.0-7.3) % Eos % (Auto) (0.0-4.3) % Baso % (Auto) (0.0-1.8) % Lymph # (Auto) (1.2-5.4) K/mm3 Clarke # (Auto) (0.0-0.8) K/mm3 Eos # (Auto) (0.0-0.4) K/mm3 Baso # (Auto) (0.0-0.1) K/mm3 Seg Neutrophils % (40.0-70.0) % Seg Neutrophils # (1.8-7.7) K/mm3 Sodium (137-145) mmol/L Potassium (3.6-5.0) mmol/L Chloride (98-107) mmol/L Carbon Dioxide (22-30) mmol/L Anion Gap mmol/L BUN (7-17) mg/dL Creatinine (0.6-1.2) mg/dL Estimated GFR ml/min BUN/Creatinine Ratio % Glucose (65-100) mg/dL Calcium (8.4-10.2) mg/dL Total Bilirubin (0.1-1.2) mg/dL AST (5-40) units/L ALT (7-56) units/L Alkaline Phosphatase (35-129) units/L Total Protein (6.3-8.2) g/dL Albumin (3.9-5) g/dL Albumin/Globulin Ratio % HCG, Qual (Negative) Urine Color Yellow (Yellow) Urine Turbidity Hazy (Clear) Urine pH 6.0 (5.0-7.0) Ur Specific [place] 1.023 (1.003-1.030) Urine Protein <15 mg/dl (Negative) mg/dL Urine Glucose (UA) Neg (Negative) mg/dL Urine Ketones Neg (Negative) mg/dL Urine Blood Mod (Negative) Urine Nitrite Neg (Negative) Urine Bilirubin Neg (Negative) Urine Urobilinogen < 2.0 (<2.0) mg/dL Ur Leukocyte Esterase Neg (Negative) Urine WBC (Auto) 2.0 (0.0-6.0) /HPF Urine RBC (Auto) 10.0 (0.0-6.0) /HPF U Epithel Cells (Auto) 2.0 (0-13.0) /HPF Amorphous Crystals Few Urine Mucus Few /HPF Salicylates (2.8-20.0) mg/dL Urine Opiates Screen Presumptive negative Urine Methadone Screen Presumptive negative Acetaminophen (10.0-30.0) ug/mL Ur Barbiturates Screen Presumptive negative Ur Phencyclidine Scrn Presumptive negative Ur Amphetamines Screen Presumptive negative U Benzodiazepines Scrn Presumptive negative Urine Cocaine Screen Presumptive negative U Marijuana (THC) Screen Presumptive positive Drugs of Abuse Note Disclamer Plasma/Serum Alcohol (0-0.07) %
[2021-07-23 09:23] LABS: Basophils % (Auto) 0.5 % (0.0-1.8); Eosinophils # (Auto) 0.3 K/mm3 (0.0-0.4); Eosinophils % (Auto) 2.6 % (0.0-4.3); Hematocrit 39.3 % (30.3-42.9); Hemoglobin 13.4 gm/dl (10.1-14.3); Lymphocytes # (Auto) 3.6 K/mm3 (1.2-5.4); Lymphocytes % (Auto) 34.4 % (13.4-35.0); Mean Corpuscular HGB Conc 34 % (30-34); Mean Corpuscular Volume 94 fl (79-97); Monocytes # (Auto) 0.5 K/mm3 (0.0-0.8); Monocytes % (Auto) 4.6 % (0.0-7.3); Platelet Count 272 K/mm3 (140-440); Red Cell Distribution Width 14.2 % (13.2-15.2)
[2021-07-23] MEDS: DIVALPROEX DR 125 MG TAB PO SCH ×2 (09:52→22:06)
[2021-07-23] MEDS: FLUoxetine 10 MG TAB PO SCH (09:52)
[2021-07-23] MEDS ORDERED: SODIUM CHLORIDE 0.9% 1000 ML 1,000 ML IV ONE ×2 (10:59→16:11)
--- NOTE | 2021-07-23 11:10 | Progress Note ---
Subjective - Reason for Consult Consult date: 07/23/21 Reason for consult: mental health evaluation - Chief Complaint Chief complaint: The patient was sen in the room, she is calm but continues to present with disorganized thoughts. REVIEW OF SYSTEMS Constitutional: Negative for weight loss ENT: Negative for stridor Respiratory: Negative for cough or hemoptysis All other systems reviewed and are negative MENTAL STATUS EXAMINATION General Appearance and Behavior: Age appropriate, good hygiene, wearing appropriate clothes, sleeping, cooperative Cooperation: Participating but drowsy Psychomotor Behavior: unremarkable and within normal limits Mood: "OK" Affect and affective range: Incongruent with mood, labile Thought Process:Thought blocking Thought Content: Impulsive Speech: Normal volume, Regular rate and rhythm, Suicidal Ideation: Denies Homicidal Ideation:Denies Hallucinations: Yes, auditory Delusions: None elicited Impulse Control: Questionable Insight and Judgment: Limited insight and poor judgment, Memory: Normal, Attention: Normal Orientation: Alert, oriented Assessment and Plan (1)Unspecified mood disorder- F39 Continue 1013 Zyprexa 20mg po daily Prozac 10mg po daily Depakote DR 125mg po BID Continue previously prescribed medications The patient to comply with previously prescribed medications Risks, benefits and alternatives of medications discussed with the patient, questions answered and consent obtained from patient. PSYCHOTHERAPY: Supportive psychotherapy provided MEDICAL: Per primary team DELIRIUM PRECAUTIONS: Please re-orient patient frequently, keep lights on during the day, and minimize benzodiazepines and opiates as these medications could worsen patient's confusion. TON CYLINDER INSPECTOR: Defer to primary Disposition: Recommend acute psychiatric inpatient treatment. Will follow. Thank you for the consult. Please contact with any questions and/or concerns. Case staffed with Dr. Norris Medications and Allergies Mental Status Exam - Vital signs Last Vital Signs Temp 97.4 F L 07/23/21 10:31 Pulse 61 07/23/21 10:31 Resp 18 07/23/21 10:31 BP 84/36 07/23/21 10:31 Pulse Ox 97 07/23/21 10:31
--- NOTE | 2021-07-23 11:47 | Emergency Department Report ---
Blank Doc - Documentation Documentation: 35-year-old female unspecified mood disorder on 1013 for disorganized thought Vital signs show mild hypotension. Patient is asymptomatic however. 1 L of normal saline ordered to see if there is improvement. Patient is compliant with her p.o. medications as ordered by mental health. Zyprexa can cause orthostatic hypotension As per nursing notes no events overnight Continue 1013 as per mental health. Patient awaiting placement
[2021-07-23] MEDS ORDERED: LIDOCAINE 2%/EPINEPHRINE 1:100,000 VIAL (20 ML) INFILTRATI ONE (16:11)
[2021-07-23] MEDS ORDERED: CLINDAMYCIN 600 MG/50 mL 600 MG/50 ML BAG IV ONE (16:14)
[2021-07-23 17:13] LABS: Blood Urea Nitrogen 13 mg/dL (7-17); Hemolysis Index 12
[2021-07-23 17:15] LABS: BUN/Creatinine Ratio 26
[2021-07-23] MEDS ORDERED: SULFAMETHOXAZOLE/TRIMETHOPRIM 800/160MG DS TAB PO ONE (17:20)
--- NOTE | 2021-07-24 09:27 | Progress Note ---
Subjective - Reason for Consult Consult date: 07/24/21 Reason for consult: SI - Chief Complaint Chief complaint: The patient was sen in the room, she is calm . The patient states she feels better. She denies any current suicidal/homicidal ideation and denies hallucinations. REVIEW OF SYSTEMS Constitutional: Negative for weight loss ENT: Negative for stridor Respiratory: Negative for cough or hemoptysis All other systems reviewed and are negative MENTAL STATUS EXAMINATION General Appearance and Behavior: Age appropriate, good hygiene, wearing appropriate clothes, sleeping, cooperative Cooperation: Participating but drowsy Psychomotor Behavior: unremarkable and within normal limits Mood: "OK" Affect and affective range: Incongruent with mood, labile Thought Process:Goal directed Thought Content: Not SI Speech: Normal volume, Regular rate and rhythm, Suicidal Ideation: Denies Homicidal Ideation:Denies Hallucinations:Denies Delusions: None elicited Impulse Control: Questionable Insight and Judgment: Limited insight and Good judgment, Memory: Normal, Attention: Normal Orientation: Alert, oriented Assessment and Plan (1)Unspecified mood disorder- F39 Continue 1013 Zyprexa 20mg po daily Prozac 10mg po daily Depakote DR 125mg po BID Continue previously prescribed medications The patient to comply with previously prescribed medications Risks, benefits and alternatives of medications discussed with the patient, questions answered and consent obtained from patient. PSYCHOTHERAPY: Supportive psychotherapy provided MEDICAL: Per primary team DELIRIUM PRECAUTIONS: Please re-orient patient frequently, keep lights on during the day, and minimize benzodiazepines and opiates as these medications could worsen patient's confusion. BEAUTY CULTURIST APPRENTICE: Defer to primary BEAUTY CULTURIST APPRENTICE: Defer to primary Disposition: Do not recommend acute psychiatric inpatient treatment. Picking Machine Operator Helper will provide patient with out patient resources. The patient to follow up with outpatient psych in 7 to 14 days upon discharge The bench press operator to further discuss safety plan and provide all necessary outpatient resources Thank you for the consult. Please contact with any questions and/or concerns. Case staffed with Dr. Norris Medications and Allergies Mental Status Exam - Vital signs Last Vital Signs Temp 98 F 07/24/21 02:25 Pulse 63 07/24/21 02:25 Resp 16 07/24/21 02:25 BP 101/60 07/24/21 02:25 Pulse Ox 98 07/24/21 02:25
[2021-07-24] MEDS ORDERED: SULFAMETHOXAZOLE/TRIMETHOPRIM 800/160MG DS TAB PO SCH (10:00)
--- NOTE | 2021-07-24 10:12 | Event Note ---
Patient is being discharged. Cleared by psychiatry team.
[2021-07-24] MEDS: FLUoxetine 10 MG TAB PO SCH (10:33)
[2021-07-24] MEDS: DIVALPROEX DR 125 MG TAB PO SCH (10:33)
[2021-07-24 11:07] VITALS: BP 112/77
--- NOTE | 2021-07-26 14:26 | Electrocardiograph Report ---
[facility] Test Date: 2021-07-22 Test Time: 00:58:54 Pat Name: GARY JOSHI Department: Room: Gender: F Survey Research Professor: SANDER : 1985 Requested By: CHITO AUGUSTIN Order Number: [id number] Reading MD: Juliann Koenig Measurements Intervals [place] Rate: 65 P: 43 MO: 144 QRS: 79 QRSD: 104 T: 62 QT: 422 QTc: 438 Interpretive Statements Sinus rhythm No previous ECG available for comparison Electronically Signed On 07-26-2021 14:26:08 EDT by Juliann Koenig
== END 2021-07-24 12:20 | disposition home or self-care (01) ==
LOC: ED 15:11
DX: R45.851 Suicidal ideations (principal); R44.0 Auditory hallucinations
CPT/HCPCS: 36415; 80048; 80053; 80307; 81001; 82140; 84703; 85025; 93005; 96360; 99285; J7030; 80320; G0480